=== PATIENT | female | born 1965 | race Two or more races ===

== ENCOUNTER 2021-03-15 06:52 | Emergency (ER) | payer MEDICAID, OTHER ==
[~2021-03-15] VITALS: Ht 162.6 cm; Wt 83.5 kg
[2021-03-15] MEDS ORDERED: ONDANSETRON HCL 4 MG/2 ML VIAL IV ONE (10:45)
[2021-03-15] MEDS ORDERED: MORPHINE SULFATE 4 MG/ML SYR/VIAL IV ONE (10:45)
[2021-03-15 13:50] VITALS: BP 136/69
== END 2021-03-15 12:02 | disposition short-term general hospital (02) ==
LOC: ER 06:52 → EDBD 06:52 → ER 12:02
DX: S72.402A Unspecified fracture of lower end of left femur, initial encounter for closed fracture (principal); S52.611A Displaced fracture of right ulna styloid process, initial encounter for closed fracture; E78.5 Hyperlipidemia, unspecified; I10 Essential (primary) hypertension; V43.62XA Car passenger injured in collision with other type car in traffic accident, initial encounter; Y93.89 Activity, other specified; Y92.488 Other paved roadways as the place of occurrence of the external cause; Y99.8 Other external cause status
CPT/HCPCS: 73090; 73564; 93005; 96374; 96375; 99285; J2270; J2405